=== PATIENT | male | born 1985 | race American Indian/Alaskan Native ===

== ENCOUNTER 2017-05-24 06:10 | Day surgery (SDC) | payer OTHER ==
--- NOTE | 2017-05-24 07:11 | XRay Report ---
Sacrum and coccyx 2 views: History: Possible foreign body. Findings: No radiopaque foreign body identified in the soft tissue. No fracture. Impression no radiopaque foreign body noted.
--- NOTE | 2017-05-24 07:12 | XRay Report ---
Single view abdomen: History: Rectal pain. Findings: No bowel distention or wall thickening. No fecal impaction or radiopaque calculus or abnormal calcification. Impression: Essentially negative abdomen.
--- NOTE | 2017-05-24 07:51 | Emergency Department Report ---
ED General Adult HPI - General Chief complaint: Rectal Pain Stated complaint: RECTAL PAIN Time Seen by Provider: 05/24/17 07:32 Source: patient Mode of arrival: Ambulatory Limitations: No Limitations - History of Present Illness Initial comments: Patient comes into the ER today with complaints of rectal pain. Patient states that he ate at a [employer] yesterday and later in the day when he went to have a bowel movement he felt a sharp, sudden, severe pain in his rectum towards the end of the movement. Since that time, patient has had a sharp pain in his rectum. Patient did self rectal exam and felt a hard object in his rectum. Patient is concerned as if it is something that he may have eaten like an egg shell or some glass. Patient denies any vomiting, abdominal pain, rectal bleeding. -: Sudden, days(s) (1) - Related Data Previous Rx's Medication Instructions Recorded Last Taken Type traMADol [Ultram 50 MG tab] 50 mg PO Q4HR PRN #15 tablet 05/24/17 Unknown Rx Allergies Allergy/AdvReac Type Severity Reaction Status Date / Time Iodine and Iodide Containing Allergy Anaphylaxis Verified 01/17/15 03:28 Produc Penicillins AdvReac Itching Verified 01/17/15 03:28 seafood Allergy Anaphylaxis Uncoded 01/17/15 03:28 ED Review of Systems ROS: Stated complaint: RECTAL PAIN Other details as noted in HPI Constitutional: denies: chills, fever Eyes: denies: eye pain, eye discharge, vision change ENT: denies: ear pain, throat pain Respiratory: denies: cough, shortness of breath, wheezing Cardiovascular: denies: chest pain, palpitations Endocrine: no symptoms reported Gastrointestinal: other (rectal pain). denies: abdominal pain, nausea, vomiting , diarrhea, constipation, hematemesis, melena, hematochezia Genitourinary: denies: urgency, dysuria Musculoskeletal: denies: back pain, joint swelling, arthralgia Skin: denies: rash, lesions Neurological: denies: headache, weakness, paresthesias Psychiatric: denies: anxiety, depression Hematological/Lymphatic: denies: easy bleeding, easy bruising ED Past Medical Hx - Past Medical History Previous Medical History?: No - Surgical History Past Surgical History?: Yes Additional Surgical History: "pinched nerve moved" in left elbow - Social History Smoking Status: Current Every Day Smoker Substance Use Type: None - Medications Home Medications: Home Medications Medication Instructions Recorded Confirmed Last Taken Type traMADol [Ultram 50 MG tab] 50 mg PO Q4HR PRN #15 tablet 05/24/17 Unknown Rx ED Physical Exam - General Limitations: No Limitations General appearance: alert, in no apparent distress - Head Head exam: Present: atraumatic, normocephalic - Eye Eye exam: Present: normal appearance - ENT ENT exam: Present: mucous membranes moist - Neck Neck exam: Present: normal inspection - Respiratory Respiratory exam: Present: normal lung sounds bilaterally. Absent: respiratory distress - Cardiovascular Cardiovascular Exam: Present: regular rate, normal rhythm. Absent: systolic murmur, diastolic murmur, rubs, gallop - GI/Abdominal GI/Abdominal exam: Present: soft, normal bowel sounds - Rectal Rectal exam: Present: normal rectal tone, heme (-) stool, tenderness, other ( palpable hard object on the posterior edge of the rectum approximately 1-2 inches internally.) - Extremities Exam Extremities exam: Present: normal inspection - Back Exam Back exam: Present: normal inspection - Neurological Exam Neurological exam: Present: alert, oriented X3 - Psychiatric Psychiatric exam: Present: normal affect, normal mood - Skin Skin exam: Present: warm, dry, intact, normal color. Absent: rash ED Course Vital Signs 05/24/17 05/24/17 05/24/17 06:16 14:14 16:14 Temperature 98.1 F 98.1 F Pulse Rate 60 60 70 Respiratory 18 18 24 Rate Blood Pressure 158/100 130/59 Blood Pressure 159/106 [Right] O2 Sat by Pulse 97 97 98 Oximetry 05/24/17 05/24/17 05/24/17 16:39 16:56 17:11 Temperature 98.1 F 97.9 F Pulse Rate 70 70 57 L Respiratory 24 16 13 Rate Blood Pressure 130/59 92/57 98/67 Blood Pressure [Right] O2 Sat by Pulse 98 99 98 Oximetry 05/24/17 05/24/17 17:26 18:02 Temperature Pulse Rate 62 60 Respiratory 20 16 Rate Blood Pressure 107/78 Blood Pressure 125/60 [Right] O2 Sat by Pulse 99 96 Oximetry ED Medical Decision Making - Radiology Data Radiology results: report reviewed Abdominal x-rays interpreted as unremarkable. CT scan of pelvis without IV contrast reveals a radiopaque density measuring 8 mm in diameter at the anorectal junction. No wall thickening, no retroperitoneal air or abscess. - Medical Decision Making Reviewed imaging results with patient and family in room. Consultation [facility] and spoke with nurse practitioner Tabby at 10:20 AM. She is to consult with her attending and they will examine patient in the ER. Treatment plan will be per gastroenterology recommendation. As per gastroenterology recommendations, patient was given enema here in the ER to hopefully get patient to pass foreign body. Patient had bowel movement after enema here in the ER without passage of the foreign body. Patient states that he still feels the discomfort. I relayed information to gastroenterology in they said that they will bring him in to perform a flexible sigmoidoscopy on patient to remove foreign body. Patient is in agreement with treatment plan. Case and treatment plan discussed with attending Dr. Caba. 05/24/17 at 17:40 - patient sent back to the ER after flexible sigmoidoscopy for discharge home. Per GI report, 2 small hard pieces of foreign body removed from patient's rectum consistent with bone. No complications during procedure. Apparently one of the foreign body fragments was embedded into the rectal wall resulting in a Small fissure noted to rectal wall without any perforation. Patient tolerated procedure without any complications. By the time patient returned to the ER room for discharge, patient appears to be alert and oriented and in no acute distress. Vital signs reassessed. Patient states that he is feeling much better and no longer has the sharp pain in his bottom. Patient will be discharged home and is in agreement with treatment plan. Critical care attestation.: If time is entered above; I have spent that time in minutes in the direct care of this critically ill patient, excluding procedure time. ED Disposition Clinical Impression: Rectal pain, Rectal foreign body Disposition: DC-01 TO HOME OR SELFCARE Is pt being admited?: No Does the pt Need Aspirin: No Condition: Good Time of Disposition: 18:11 Discharge Examination - Vital Signs Vital Signs: Vital Signs Temp Pulse Resp BP Pulse Ox 98.1 F 60 18 158/100 97 05/24/17 06:16 05/24/17 06:16 05/24/17 06:16 05/24/17 06:16 05/24/17 06:16
--- NOTE | 2017-05-24 08:21 | Cat Scan Report ---
CT scan of pelvis without IV contrast: History: Rectal pain, possible foreign body in rectum. Findings: There is fecal matter identified within the rectum. There is also noted radiopaque density measuring 8 mm in diameter at anorectal junction. This may be calcified fecalith or a foreign body. No wall thickening. No retroperitoneal air or abscess. Bilateral inguinal hernia containing fat. Impression: Findings as detailed above.
--- NOTE | 2017-05-24 11:07 | Gastroenterology Consultation ---
<LEANDER LOPEZ - Last Filed: 05/24/17 11:09> History of Present Illness - Reason for Consult Consult date: 05/24/17 rectal pain Requesting physician: SAEED LLANES - History of Present Illness Patient is a 32 y/o male who came to the ER today for c/o rectal pain. VSS. Pt states the only solid food he ate yesterday was from [employer], following the meal, he reports while having a BM he developed sharp severe rectal pain. He states the pain has been constant since BM yesterday without relief, rating a 10/10 on pain scale. Admits to pain worsening with movement. Denies fever, diarrhea, abd pain, N/V, or rectal bleeding. CT scan of pelvis revealed a radiopaque density measuring 8mm at the anorectal junction. Pt denies any manual placement of foreign body in the rectum. Denies any significant PMH. Past History Past Medical History: No medical history Past Surgical History: Other (Left elbow) Social history: , lives with family, smoking (1/2PPD) Medications and Allergies Allergies Allergy/AdvReac Type Severity Reaction Status Date / Time Iodine and Iodide Containing Allergy Anaphylaxis Verified 01/17/15 03:28 Produc Penicillins AdvReac Itching Verified 01/17/15 03:28 seafood Allergy Anaphylaxis Uncoded 01/17/15 03:28 Home Medications Medication Instructions Recorded Confirmed Last Taken Type No Known Home Medications [No 05/24/17 05/24/17 Unknown History Reported Home Medications] Review of Systems - Review of Systems All systems: negative Gastrointestinal: no abdominal pain, no nausea, no vomiting, no BRBPR, no hematochezia Rectal: pain, no bleeding Exam - Constitutional Vital Signs: Temp Pulse Resp BP Pulse Ox 98.1 F 60 18 158/100 97 05/24/17 06:16 05/24/17 06:16 05/24/17 06:16 05/24/17 06:16 05/24/17 06:16 General appearance: mild distress, well-nourished - EENT Eyes: PERRL, EOM intact ENT: hearing intact - Neck Neck: supple, normal ROM - Respiratory Respiratory: bilateral: CTA - Cardiovascular Rhythm: regular Heart Sounds: Present: S1 & S2 Extremities: No edema - Gastrointestinal General gastrointestinal: Present: soft, non-tender, non-distended, normal bowel sounds Rectal Exam: normal exam-external/orifice, normal rectal tone, other (foreign body felt posterior but unable to remove, rectal pain with palpation of object, no rectal bleeding) - Integumentary Integumentary: Present: warm, dry - Neurologic Neurological: alert and oriented x3 - Psychiatric Psychiatric: appropriate mood/affect, cooperative Assessment and Plan 1. rectal pain -CT scan revealed a radiopaque density measuring 8mm at anorectal junction ( calcified fecalith vs foreign body) -foreign body palpated on rectal exam, unable to remove manually -no rectal bleeding noted -keep NPO -will order enema x 2 -will schedule to Flex Sigmoidoscopy today -will follow <ADAM MENDIETA - Last Filed: 05/24/17 15:43> Medications and Allergies Active Meds: Active Medications Sodium Chloride (Nacl 0.9% 1000 Ml) 1,000 mls @ 50 mls/hr IV DIRECT CJ Exam - Constitutional Vital Signs: Temp Pulse Resp BP Pulse Ox 98.1 F 60 18 159/106 97 05/24/17 06:16 05/24/17 14:14 05/24/17 14:14 05/24/17 14:14 05/24/17 14:14 Assessment and Plan Pt ate yesterday AM at [employer], and then ate a [employer] in the evening. Pain started in evening. Just had Fleet's enema with no pain during, but pain afterwards. Pt refused rectal exam by me, as the plan is to do FS.
[2017-05-24] MEDS ORDERED: FLEET PR ONE ×2 (12:00→15:32)
--- NOTE | 2017-05-24 14:25 | Admit Criteria Form ---
Admission Criteria Documentation: GASTROENTEROLOGY [facility] Clinical Indications for Admission to Inpatient Care (Place 'X' for any and all applicable criteria): Hospital admission is needed for appropriate care of the patient because of ANY ONE of the following: [ ]I. Hemoperitoneum(7) [ ]II. Ascites requiring acute treatment indicated by ANY ONE of the following( 8)(9): [ ]a) Hemodynamic instability remaining after emergency or observation level care (as appropriate) [ ]b) Peritoneal signs present (eg, abdominal rigidity, rebound tenderness, absent bowel sounds) [ ]c) Tachypnea, Hypoxemia, or other respiratory symptoms remain after emergency or observation level care (as appropriate) [ ]d) Suspected infected ascites as indicated by ANY ONE of the following: [ ]i) Temperature greater than 100 degrees F (37.8 degrees C) [ ]ii) Abdominal pain or tenderness not relieved by paracentesis [ ]iii) Systemic signs of infection (eg, elevated WBC count, fever) [ ]iv) Ascitic fluid analysis consistent with infection ( eg, elevated WBC count): [ ]v) Vital sign abnormality [ ]III. Suspected acute intra-abdominal process indicated by ANY ONE of the following(1)(2)(3)(4)(5): [ ]a) Hemodynamic instability [ ]b) Peritoneal signs present (eg, abdominal rigidity, rebound tenderness, absent bowel sounds) [ ]c) Bowel obstruction suspected (eg, severe vomiting, abdominal distension) [ ]d) Suspected mesenteric ischemia or ischemic colitis(6) [ ]e) Other signs or symptoms of acute abdominal disease (eg, severe pain, free air): [ ]IV. Severe liver disease indicated by ANY ONE of the following(8)(9)(10)(11)( 12)(13)(14): [ ]a) Acute hepatitis (eg, transaminase level greater than 1000 IU/L) [ ]b) Acute elevation of prothrombin time to more than 50% above normal or INR greater than 1.5 [ ]c) Bilirubin greater than 20 mg/dL (342 micromoles/L) (15) [ ]d) New-onset or worsening hepatic encephalopathy [ ]e) Acute liver necrosis [ ]f) Vomiting or dehydration that is severe of persistent [ ]g) Hemodynamic instability due to liver disease [ ]h) Acute renal failure [ ]i) Hepatic abscess [ ]j) Dehydration that is severe or persistent [ ]k) Hepatic hydrothorax(21) [ ]l) Other indications of severe liver disease (eg, persistent fever , ingestion of hepatotoxin) [ ]V. Severe diarrhea indicated by ANY ONE of the following(17)(18)(19)(20)(21)( 22)(23): [ ]a) High fever or other high-risk infection situation [ ]b) Intractable bloody diarrhea (eg, more than 6 bloody stools per day) [ ]c) Suspected Clostridium difficile-associated diarrhea(24) [ ]d) Change in mental status that persists after emergency or observation level care (as appropriate) [ ]e) Severe dehydration (eg, greater than 9% loss of body weight in children) [ ]f) Inability to maintain hydration [ ]g) Peritoneal signs present (eg, abdominal rigidity, rebound tenderness, absent bowel sounds) [ ]h) Abdominal ischemia suspected(6) [ ]i) Hemodynamic instability that persists after emergency or observation level care (as appropriate) [ ]j) Severe electrolyte abnormalities requiring inpatient care [ ]k) Acute renal failure [ ]. Suspected toxic megacolon(5)(6) [ ]VII.Severe dysphagia indicated by ANY ONE of the following(25)(26): [ ]a) Suspected esophageal perforation or fistula(27) [ ]b) Suspected cause that requires inpatient care (eg, caustic ingestion, severe esophagitis) (28) [ ]c) Severe dehydration (eg, greater than 9% loss of body weight in children) [ ]d) Inability to manage secretions or maintain hydration [ ]e) Hemodynamic instability that persists after emergency or observation level care (as appropriate) [ ]f) Severe electrolyte abnormalities requiring inpatient care [ ]g) Acute renal failure [ ]VIII.Vomiting and ANY ONE of the following (29)(30)(31)(32): [ ]a) High fever or other high-risk infection situation [ ]b) Change in mental status that persists after emergency or observation level care (as appropriate) [ ]c) Severe dehydration (e.g., greater than 9% loss of body weight in children) [ ]d) Peritoneal signs present (e.g., abdominal rigidity, rebound tenderness, absent bowel sounds) [ ]e) Hemodynamic instability that persists after emergency or observation level care (as appropriate) [ ]f) Severe electrolyte abnormalities requiring inpatient care [ ]g) Acute renal failure [ ]h) Bowel obstruction suspected (e.g., severe vomiting, abdominal distension) [ ]i) Vomiting that is severe or persistent after medical treatment [ ]IX. Significant dehydration indicated by ANY ONE of the following(23)(24)(25) [ ]a) Clinical findings of severe dehydration indicated by ANY ONE of the following: [ ]i) Acute loss of weight from baseline (5% of body weight in adults, 9% in pediatric patients) [ ]ii) Hemodynamic instability [ ]iii) Acute renal failure [ ]iv) Serum sodium greater than 150 mEq/L (mmol/L) [ ]b) Dehydration that is persistent indicated by ALL of the following: [ ]i) Oral rehydration therapy not tolerated or insufficient to adequately correct dehydration [ ]ii) Appropriate intravenous treatment (eg, fluids) does not readily correct dehydration hours of (ie, after 12 to 24 of treatment) [ ]X. Gastroparesis and ANY ONE of the following(37)(38)(39): [ ]a) Dehydration that is severe or persistent [ ]b) Severe electrolyte abnormalities requiring inpatient care [ ]c) Acute renal failure [ ]d) Vomiting that is severe or persistent [ ]XI. Complications of transplanted liver indicated by ANY ONE of the following (40)(41): [ ]a) Acute graft rejection requiring inpatient management (eg, intravenous immunosuppression)(42) [ ]b) Failure of transplanted liver as indicated by ANY ONE of the following: [ ]i) Acute hepatitis (eg, transaminase level greater than 1000 International Units per liter (IU/L)) [ ]ii) Acute elevation of prothrombin time to more than 50% above baseline or INR greater than 1.5 [ ]iii) Bilirubin greater than 20 mg/dL (342 micromoles/L) [ ]iv) New-onset or worsening hepatic encephalopathy [ ]v) Acute elevation of serum ammonia level (eg, greater than 210 mcg/dL (150 micromoles/L)) [ ]vi) Acute liver necrosis [ ]c) Infection requiring inpatient management (eg, Hemodynamic instability, need for intravenous antimicrobial treatment)(43)(44)(45)(46)(47)(48)(49)(50) [ ]d) Other complication of transplanted liver (eg, thrombosis, autoimmune hepatitis, variceal bleeding) requiring inpatient management(51)(52) [ ]XII Complications of transplanted pancreas indicated by ANY ONE of the following(53): [ ]a) Acute graft rejection requiring inpatient management (eg, intravenous immunosuppression)(42)(54) [ ]b) Failure of transplanted pancreas as indicated by ANY ONE of the following: [ ]i) Serum amylase greater than 3 times the upper limit of normal or baseline [ ]ii) Serum lipase greater than 3 times the upper limit of normal or baseline [ ]iii) Imaging findings consistent with pancreatic inflammation or necrosis [ ]c) Infection requiring inpatient management (eg, Hemodynamic instability, need for intravenous antimicrobial treatment)(43)(44)(45)(46)(47)(48)(49)(50) [ ]d) Other complication of transplanted liver (eg, thrombosis, autoimmune hepatitis, variceal bleeding) requiring inpatient management(51)(52) [ X]X. Gastroenterology condition and ALL of the following: [ X]a) Symptom or finding for which emergency and observation care have failed or are not considered appropriate (Also use General Criteria: Observation Care as appropriate) [ X]b) Presence of ANY ONE of the following: [ X]i) A General Admission Criteria [ ]ii) A Pediatric General Admission Criteria. The original [facility] [email or web address] content created by [employer] has been revised. The portions of the content which have been revised are identified through the use of italic text or in bold,and [facility] has neither reviewed nor approved the modified material. All other unmodified content is copyright [facility] [employer]. Please see references footnoted in the original [facility] edition 2016
[2017-05-24] MEDS ORDERED: XYLOCAINE MPF 2% ONE (15:00)
[2017-05-24] MEDS ORDERED: WATER FOR IRRIG STERILE IR ONE (15:37)
[2017-05-24] MEDS ORDERED: NACL 0.9% 1000 ML 1,000 ML ONE (15:38)
[2017-05-24] MEDS ORDERED: NACL 0.9% 1000 ML 1,000 ML IV SCH (16:00)
--- NOTE | 2017-05-24 16:02 | Anesthesia Day of Surgery ---
Anesthesia Day of Surgery - Day of Surgery Patient Examined: Yes Patient H&P Reviewed: Yes Patient is NPO: Yes
--- NOTE | 2017-05-24 16:02 | Anesthesia Consultation ---
Anesthesia Consult and Med Hx Date of service: 05/24/17 - Airway Anesthetic Teeth Evaluation: Good ROM Head & Neck: Adequate Mental/Hyoid Distance: Adequate Mallampati Class: Class II Intubation Access Assessment: Probably Good - Pre-Operative Health Status ASA Pre-Surgery Classification: ASA2 Proposed Anesthetic Plan: MAC - Pulmonary Hx Smoking: Yes - Gastrointestinal Hx Ulcer: No (rectal pain) - Other Systems Hx Obesity: Yes (BMI 38.3)
[2017-05-24] MEDS ORDERED: DIPRIVAN 10 MG/ML IV ONE (16:24)
--- NOTE | 2017-05-24 16:59 | Post Operative Note ---
Pre-op diagnosis: Rectal foreign body Post-op diagnosis: other (Rectal foreign body, anal fissure) Findings: 1. Approx 2-3 cm long hard brownish stick-like object removed in 2 pieces with snare. 2. Fissure noted at 6 o'clock. 3. Remainder of mucosa is normal appearing. Procedure: Flex Sigmoidoscopy with foreign body removal Anesthesia: MAC Surgeon: ADAM MENDIETA Estimated blood loss: minimal Pathology: none Condition: stable Disposition: other (Home. Pt given removed foreigh object, which may be a bone fragment.)
[2017-05-24 18:02] VITALS: BP 125/60
== END 2017-05-24 16:29 | disposition home or self-care (01) ==
LOC: ED 06:10
PROVIDERS: ATTEND Ophthalmology
DX: T18.5XXA Foreign body in anus and rectum, initial encounter (principal); X58.XXXA Exposure to other specified factors, initial encounter; Y93.9 Activity, unspecified; Y92.9 Unspecified place or not applicable; Y99.9 Unspecified external cause status
CPT/HCPCS: 45332; 72192; 72220; 74000; 99284; J2704; J7030